=== PATIENT | male | born 1995 | race Caucasian/White ===

== ENCOUNTER 2017-06-11 09:29 | Emergency (ER) | payer OTHER ==
[~2017-06-11] VITALS: Ht 188 cm; Wt 76.2 kg
[2017-06-11 11:07] VITALS: BP 141/74
== END 2017-06-11 11:07 | disposition home or self-care (01) ==
LOC: ED 09:29
DX: R22.0 Localized swelling, mass and lump, head (principal); R68.84 Jaw pain
CPT/HCPCS: J1885

== ENCOUNTER 2017-06-11 21:53 | Emergency (ER) | payer OTHER ==
[2017-06-11 23:05] LABS: CARBON DIOXIDE 26.7 mmol/L (21-32); CHLORIDE SERUM 104 mmol/L (98-107); CREATININE SERUM 1.1 mg/dL (0.7-1.3); GFR1 > 60 mL/min; GLUCOSE SERUM 113 mg/dL (74-106); POTASSIUM SERUM 3.9 mmol/L (3.5-5.1); SODIUM SERUM 139 mmol/L (136-145)
[2017-06-12 00:50] VITALS: BP 139/75
== END 2017-06-12 00:50 | disposition home or self-care (01) ==
LOC: ED 21:53
PROVIDERS: Emergency Medicine
DX: S00.83XA Contusion of other part of head, initial encounter (principal); X58.XXXA Exposure to other specified factors, initial encounter; Y93.89 Activity, other specified; Y92.89 Other specified places as the place of occurrence of the external cause; Y99.8 Other external cause status; L02.01 Cutaneous abscess of face
CPT/HCPCS: J1885; J3010; J3490; J7030

== ENCOUNTER 2019-01-26 01:28 | Emergency (ER) | payer OTHER ==
[~2019-01-26] VITALS: Ht 188 cm; Wt 79.4 kg
[2019-01-26 01:38] VITALS: Ht 188 cm; Wt 79.4 kg
[2019-01-26 03:28] VITALS: BP 124/93
== END 2019-01-26 03:28 | disposition home or self-care (01) ==
LOC: ED 01:28
DX: S81.032A Puncture wound without foreign body, left knee, initial encounter (principal); J45.909 Unspecified asthma, uncomplicated; Z88.6 Allergy status to analgesic agent; Z88.5 Allergy status to narcotic agent; W22.8XXA Striking against or struck by other objects, initial encounter; Y93.89 Activity, other specified; Y92.89 Other specified places as the place of occurrence of the external cause; Y99.8 Other external cause status

== ENCOUNTER 2019-05-15 13:41 | Emergency (ER) | payer SELFPAY ==
[~2019-05-15] VITALS: Ht 188 cm; Wt 99.8 kg
[2019-05-15 13:51] VITALS: Ht 188 cm; Wt 99.8 kg
[2019-05-15 16:55] VITALS: BP 126/69
== END 2019-05-15 16:55 | disposition home or self-care (01) ==
LOC: ED 13:41
DX: S40.212A Abrasion of left shoulder, initial encounter (principal); S50.312A Abrasion of left elbow, initial encounter; S49.92XA Unspecified injury of left shoulder and upper arm, initial encounter; S09.8XXA Other specified injuries of head, initial encounter; F17.210 Nicotine dependence, cigarettes, uncomplicated; J45.909 Unspecified asthma, uncomplicated; Z88.6 Allergy status to analgesic agent; Z88.5 Allergy status to narcotic agent; Z71.6 Tobacco abuse counseling; V87.8XXA Person injured in other specified noncollision transport accidents involving motor vehicle (traffic), initial encounter; Y93.55 Activity, bike riding; Y92.413 State road as the place of occurrence of the external cause; Y99.8 Other external cause status
CPT/HCPCS: 99406; J1885; Q0092

== ENCOUNTER 2019-10-31 13:00 | Emergency (ER) | payer MEDICAID ==
[~2019-10-31] VITALS: Ht 188 cm; Wt 90.7 kg
[2019-10-31 13:57] VITALS: Ht 188 cm; Wt 90.7 kg
[2019-10-31 17:20] LABS: BASOPHIL % 0.2 % (0-2); PLATELET COUNT 367 x10^3mcL (130-400); RED CELL DISTRIBUTION WIDTH 13.5 % (11.5-14.5)
[2019-10-31 17:26] LABS: microscopic required? YES; urine erythrocyte 3+ (NEGATIVE)
[2019-10-31 17:38] LABS: CALCIUM 8.6 mg/dL (8.5-10.1); CARBON DIOXIDE 27.5 mmol/L (21-32); CHLORIDE SERUM 99 mmol/L (98-107); CREATININE SERUM 1.1 mg/dL (0.7-1.3); GFR1 > 60 mL/min; GLUCOSE SERUM 85 mg/dL (74-106); POTASSIUM SERUM 3.5 mmol/L (3.5-5.1); SODIUM SERUM 135 mmol/L (136-145)
[2019-10-31 17:42] LABS: ALBUMIN 3.4 g/dL (3.4-5.0); ALKALINE PHOSPHATASE 98 U/L (46-116); ALT/SGPT 26 U/L (16-63); AST/SGOT 24 U/L (15-37); BILIRUBIN TOTAL 0.65 mg/dL (0.20-1.00); TOTAL PROTEIN, SERUM 7.5 g/dL (6.4-8.2)
[2019-10-31 18:14] VITALS: BP 115/66
== END 2019-10-31 18:14 | disposition home or self-care (01) ==
LOC: ED 13:00
PROVIDERS: Emergency Medicine
DX: N45.1 Epididymitis (principal); F17.200 Nicotine dependence, unspecified, uncomplicated; J45.909 Unspecified asthma, uncomplicated; Z88.5 Allergy status to narcotic agent; Z88.8 Allergy status to other drugs, medicaments and biological substances
CPT/HCPCS: 99406; J0696; J1885; J7030; J7060; Q0092

== ENCOUNTER 2020-02-01 13:28 | Emergency (ER) | payer OTHER ==
[~2020-02-01] VITALS: Ht 188 cm; Wt 87.5 kg
[2020-02-01 13:31] VITALS: Ht 188 cm; Wt 87.5 kg
[2020-02-01 14:11] LABS: BASOPHIL % 0.4 % (0-2); PLATELET COUNT 337 x10^3mcL (130-400)
[2020-02-01 14:12] LABS: RED CELL DISTRIBUTION WIDTH 15.2 % (11.5-14.5)
[2020-02-01 14:38] VITALS: BP 120/69
[2020-02-01 14:58] LABS: CALCIUM 9.1 mg/dL (8.5-10.1); CARBON DIOXIDE 25.5 mmol/L (21-32); CHLORIDE SERUM 103 mmol/L (98-107); CREATININE SERUM 0.9 mg/dL (0.7-1.3); GFR1 > 60 mL/min; GLUCOSE SERUM 100 mg/dL (74-106); POTASSIUM SERUM 3.8 mmol/L (3.5-5.1); SODIUM SERUM 139 mmol/L (136-145)
== END 2020-02-01 14:38 | disposition home or self-care (01) ==
LOC: ED 13:28
PROVIDERS: Emergency Medicine
DX: R10.31 Right lower quadrant pain (principal); R10.32 Left lower quadrant pain; J45.909 Unspecified asthma, uncomplicated; K52.9 Noninfective gastroenteritis and colitis, unspecified; Z88.6 Allergy status to analgesic agent; Z88.5 Allergy status to narcotic agent
CPT/HCPCS: 36415

== ENCOUNTER 2020-06-28 14:45 | Emergency (ER) | payer OTHER ==
[~2020-06-28] VITALS: Ht 188 cm; Wt 85.3 kg
[2020-06-28 15:00] VITALS: Ht 188 cm; Wt 85.3 kg
[2020-06-28 17:04] VITALS: BP 131/70
== END 2020-06-28 17:05 | disposition home or self-care (01) ==
LOC: ED 14:45
DX: S62.521A Displaced fracture of distal phalanx of right thumb, initial encounter for closed fracture (principal); J45.909 Unspecified asthma, uncomplicated; Z88.6 Allergy status to analgesic agent; W22.8XXA Striking against or struck by other objects, initial encounter; Y93.89 Activity, other specified; Y92.89 Other specified places as the place of occurrence of the external cause; Y99.8 Other external cause status
CPT/HCPCS: Q0092